=== PATIENT | male | born 1950 | race Hispanic/Latino ===

== ENCOUNTER 2022-03-27 06:25 | Observation (INO) | payer OTHER, MEDICARE ==
[2022-03-24 09:37] LABS: BASOPHILS % (AUTO) 0.6 % (0.0-5.0); HEMATOCRIT 39.8 % (42-54); MEAN CORPUSCULAR HGB CONC 33.2 g/dL (32.0-36.0); MEAN CORPUSCULAR VOLUME 93.4 fL (79-99); MONOCYTES % (AUTO) 6.7 % (3.0-13.0); NEUTROPHILS % (AUTO) 63.5 % (40.0-77.0); PLATELET COUNT (AUTO) 170 K/uL (130-400); RED BLOOD CELL COUNT(AUTO) 4.26 MIL/uL (4.50-6.20); RED CELL DISTRIBUTION WIDTH 12.7 % (11.0-15.5); WHITE BLOOD COUNT (AUTO) 5.4 K/uL (4.8-10.8)
[2022-03-24 09:50] LABS: CREATININE 1.3 mg/dL (0.5-1.5); POTASSIUM 4.4 mmol/L (3.5-5.1)
[2022-03-24 09:53] LABS: INR 1.03 (0.85-1.15); PROTHROMBIN TIME 11.2 SEC (9.6-11.6)
[2022-03-24 12:09] VITALS: BP 140/75
[2022-03-24 12:53] LABS: APPEARANCE,URINE Clear (CLEAR); BILIRUBIN,URINE Negative (NEGATIVE); COLOR,URINE Yellow (YELLOW); GLUCOSE, URINE (UA) Negative (NEGATIVE); KETONES,URINE Negative (NEGATIVE); LEUKOCYTE ESTERASE ,URINE Negative (NEGATIVE); NITRATE,URINE Negative (NEGATIVE); OCCULT BLOOD,URINE Negative (NEGATIVE); PROTEIN,URINE Trace mg/dL (NEGATIVE); UROBILINOGEN,URINE 0.2 mg/dL (0.2-1.0)
[2022-03-24 13:18] LABS: BACTERIA,URINE Rare /HPF (None Seen); RBC,URINE 0-1 /HPF (0-1); SPERM,URINE Few /HPF (None Seen); SQUAMOUS EPITHELIAL CELL,UR Rare /HPF (0-2); WBC,URINE 0-1 /HPF (0-1)
[~2022-03-27] VITALS: Ht 165.1 cm; Wt 79.3 kg
[2022-03-27] VITALS (26 sets, daily range): BP systolic 92–155; BP diastolic 64–91
[2022-03-27] MEDS: CEFAZOLIN SODIUM 2 GM VIAL IV SCH ×2 (05:00→09:24)
[~2022-03-27 06:25] MED LIST: AEC81 PO; ATOR40TA69 PO; DONE5TAB33 PO; GABA100C PO; LOSA100T58 PO; VITAMIN D3 PO
[2022-03-27] MEDS ORDERED: LACTATED RINGERS 1000ML 1,000 ML IV ONE (07:29)
[2022-03-27] MEDS ORDERED: CEFAZOLIN SODIUM 1 GM VIAL ONE (07:29)
[2022-03-27] MEDS ORDERED: KETOROLAC 15MG/ML VIAL (15MG/ML) ONE (08:42)
[2022-03-27] MEDS ORDERED: CELECOXIB 200 MG CAP ONE (08:42)
[2022-03-27] MEDS ORDERED: ACETAMINOPHEN 500 MG TABLET ONE (08:42)
[2022-03-27] MEDS ORDERED: GLYCOPYRROLATE 1 MG/5 ML SYRINGE ONE (09:06)
[2022-03-27] MEDS ORDERED: SUCCINYLCHOLINE 200MG/10ML SYR ONE (09:06)
[2022-03-27] MEDS ORDERED: PROPOFOL 10 MG/ML 20ML VIAL IV ONE (09:06)
[2022-03-27] MEDS ORDERED: LIDOCAINE PF 100MG/5ML (2%) SYRINGE 5ML ONE (09:06)
[2022-03-27] MEDS ORDERED: SUCCINYLCHOLINE CHLORIDE 20 MG/ML 10 ML VIAL ONE (09:06)
[2022-03-27] MEDS ORDERED: NEOSTIGMINE 5MG/5ML SYR IV ONE (09:07)
[2022-03-27] MEDS ORDERED: ROCURONIUM 10MG/1ML SYR 10 MG/ML ML ONE (09:07)
[2022-03-27] MEDS ORDERED: MIDAZOLAM HCL 1 MG/ML 2ML VIAL ONE (09:07)
[2022-03-27] MEDS ORDERED: FENTANYL CITRATE PF 50 MCG/1 ML 2ML VIAL ONE ×2 (09:12→11:54)
[2022-03-27] MEDS: CEFAZOLIN SODIUM 1 GM VIAL ONE ×2 (09:49→09:50)
[2022-03-27] MEDS ORDERED: TRANEXAMIC ACID 1000MG/10ML ONE (09:52)
[2022-03-27] MEDS ORDERED: LIDOCAINE HCL-MPF 1% 2ML VIAL IV PRN (11:30)
[2022-03-27] MEDS ORDERED: POTASSIUM CHLORIDE 20MEQ/100ML 100 ML IV PRN (11:30)
[2022-03-27] MEDS ORDERED: KETOROLAC 15MG/ML VIAL (15MG/ML) IV PRN (11:30)
[2022-03-27] MEDS ORDERED: CALCIUM CARB 500MG PO PRN (11:30)
[2022-03-27] MEDS ORDERED: FERROUS FUMARATE 324 MG TABLET PO PRN (11:30)
[2022-03-27] MEDS ORDERED: KCL 20 MEQ ERTAB PO PRN (11:30)
[2022-03-27] MEDS ORDERED: POTASSIUM CHLORIDE 10% ELIXIR 20 MEQ/15 ML UDCUP PO PRN (11:30)
[2022-03-27] MEDS ORDERED: OXYCODONE HCL 5 MG TAB PO PRN (11:30)
[2022-03-27] MEDS: ACETAMINOPHEN 500 MG TABLET PO SCH ×2 (11:30→20:29)
[2022-03-27] MEDS ORDERED: DiphenhydrAMINE HCL 50 MG/ML VIAL IVP PRN (11:30)
[2022-03-27] MEDS ORDERED: ONDANSETRON 4MG INJ IVP PRN (11:30)
[2022-03-27] MEDS ORDERED: MEPERIDINE-PF 25 MG/ML SYG ONE ×2 (12:12→13:01)
[2022-03-27] MEDS: CEFAZOLIN SODIUM 1 GM VIAL IVP SCH (18:21)
[2022-03-27] MEDS: DONEPEZIL HCL 5 MG TAB PO SCH (20:28)
[2022-03-27] MEDS: CELECOXIB 200 MG CAP PO SCH (20:28)
[2022-03-27] MEDS: FAMOTIDINE 20MG TAB PO SCH (20:28)
[2022-03-27] MEDS: ATORVASTATIN 40 MG TABLET PO SCH (20:28)
[2022-03-27] MEDS: GABAPENTIN 100 MG CAPSULE PO SCH (20:28)
[2022-03-27] MEDS: 0.9%NACL 1000ML 1,000 ML IV SCH (20:31)
[2022-03-27] MEDS ORDERED: PREGABALIN 25 MG CAP PO SCH (21:00)
[2022-03-27] MEDS: OXYCODONE HCL 5 MG TAB PO PRN (22:06)
[2022-03-28] VITALS (7 sets, daily range): BP systolic 105–135; BP diastolic 52–68
[2022-03-28] MEDS: CEFAZOLIN SODIUM 1 GM VIAL IVP SCH (00:02)
[2022-03-28] MEDS: 0.9%NACL 1000ML 1,000 ML IV SCH ×2 (00:03→04:20)
[2022-03-28] MEDS ORDERED: TAMSULOSIN HCL 0.4 MG CAP.ER.24H ONE (02:36)
[2022-03-28] MEDS ORDERED: TAMSULOSIN HCL 0.4 MG CAP.ER.24H PO SCH (03:00)
[2022-03-28] MEDS: ACETAMINOPHEN 500 MG TABLET PO SCH ×3 (03:30→20:32)
[2022-03-28] MEDS: CEFAZOLIN SODIUM 2 GM VIAL IV SCH (03:31)
[2022-03-28 05:04] LABS: HEMATOCRIT 30.9 % (42-54); MEAN CORPUSCULAR HGB CONC 33.7 g/dL (32.0-36.0); MEAN CORPUSCULAR VOLUME 92.2 fL (79-99); RED BLOOD CELL COUNT(AUTO) 3.35 MIL/uL (4.50-6.20); RED CELL DISTRIBUTION WIDTH 12.7 % (11.0-15.5); WHITE BLOOD COUNT (AUTO) 5.8 K/uL (4.8-10.8)
[2022-03-28 05:25] LABS: CREATININE 1.3 mg/dL (0.5-1.5); POTASSIUM 4.2 mmol/L (3.5-5.1)
[2022-03-28] MEDS: OXYCODONE HCL 5 MG TAB PO PRN ×2 (05:25→14:25)
[2022-03-28] MEDS: POLYETHYLENE GLYCOL 3350 17 GM POWD.PACK PO SCH (08:27)
[2022-03-28] MEDS: RIVAROXABAN 20 MG TABLET PO SCH (08:27)
[2022-03-28] MEDS: CELECOXIB 200 MG CAP PO SCH ×2 (08:27→20:31)
[2022-03-28] MEDS: GABAPENTIN 100 MG CAPSULE PO SCH ×2 (08:28→20:30)
[2022-03-28] MEDS: FAMOTIDINE 20MG TAB PO SCH ×2 (08:28→20:30)
[2022-03-28] MEDS: LOSARTAN 100 MG TABLET PO SCH (08:28)
[2022-03-28] MEDS: TAMSULOSIN HCL 0.4 MG CAP.ER.24H PO SCH (08:28)
[2022-03-28] MEDS: TRAMADOL HCL 50 MG TABLET PO PRN ×2 (10:28→23:26)
[2022-03-28] MEDS: DONEPEZIL HCL 5 MG TAB PO SCH (20:30)
[2022-03-28] MEDS: ATORVASTATIN 40 MG TABLET PO SCH (20:30)
[2022-03-29] MEDS: ACETAMINOPHEN 500 MG TABLET PO SCH ×2 (03:30→10:50)
[2022-03-29] MEDS: CEFAZOLIN SODIUM 2 GM VIAL IV SCH (04:17)
[2022-03-29 04:40] VITALS: BP 100/50
[2022-03-29 08:59] VITALS: BP 119/62
[2022-03-29] MEDS: RIVAROXABAN 20 MG TABLET PO SCH (09:06)
[2022-03-29] MEDS: POLYETHYLENE GLYCOL 3350 17 GM POWD.PACK PO SCH (09:06)
[2022-03-29] MEDS: TAMSULOSIN HCL 0.4 MG CAP.ER.24H PO SCH (09:06)
[2022-03-29] MEDS: LOSARTAN 100 MG TABLET PO SCH (09:07)
[2022-03-29] MEDS: CELECOXIB 200 MG CAP PO SCH (09:07)
[2022-03-29] MEDS: GABAPENTIN 100 MG CAPSULE PO SCH (09:07)
[2022-03-29] MEDS: FAMOTIDINE 20MG TAB PO SCH (09:07)
[2022-03-29] MEDS: TRAMADOL HCL 50 MG TABLET PO PRN (09:09)
[2022-03-29] MEDS ORDERED: BISACODYL 10 MG SUPP.RECT RC SCH (10:00)
[2022-03-29 11:40] VITALS: BP 109/58
[2022-03-29] MEDS ORDERED: MAGNESIUM CITRATE 296 ML SOLUTION PO SCH (12:30)
[2022-03-29 15:58] VITALS: BP 106/67
[2022-03-29] MEDS ORDERED: HYDR-4060 PO (16:02)
[2022-03-29] MEDS ORDERED: RIVA20TA PO (16:02)
[2022-03-30] MEDS ORDERED: BISACODYL 10 MG SUPP.RECT RC PRN (11:30)
== END 2022-03-29 19:09 | disposition home health service (06) ==
LOC: DAH 06:25 → DAHIP 06:26 → DAH 06:26 → 4AH 13:49
PROVIDERS: ADMIT Orthopaedic Surgery; ATTEND Orthopaedic Surgery
DX: M17.11 Unilateral primary osteoarthritis, right knee (principal); Z20.822 Contact with and (suspected) exposure to COVID-19; D62 Acute posthemorrhagic anemia; I10 Essential (primary) hypertension; R33.9 Retention of urine, unspecified; K21.9 Gastro-esophageal reflux disease without esophagitis; Z79.899 Other long term (current) drug therapy; Z86.16 Personal history of COVID-19; Z87.891 Personal history of nicotine dependence
CPT/HCPCS: 27447; 36415 ×2; 80048 ×2; 81001; 85025; 85027; 85610; 87088; 87635; 87641; 88305; 88311; 93005; 96374; 96375; 96376; 97039 ×4; 97116 ×4; 97161; 97530 ×5; A4215; A4221; A4222; A4223; A4649 ×5; A4663; A5120; A9272; C1776; C9803; G0378 ×52; J0330 ×2; J0690 ×5; J1885 ×2; J2001; J2175 ×2; J2250; J2704; J2710; J3010 ×2; J3490 ×2; J7120 ×2

== ENCOUNTER 2022-05-22 09:35 | Observation (INO) | payer OTHER, MEDICARE ==
[2022-05-19 10:56] LABS: HEMATOCRIT 34.5 % (42-54); MEAN CORPUSCULAR HEMOGLOBIN 29.1 pg (27.0-33.0); MEAN CORPUSCULAR HGB CONC 31.6 g/dL (32.0-36.0); PLATELET COUNT (AUTO) 178 K/uL (130-400); RED BLOOD CELL COUNT(AUTO) 3.75 MIL/uL (4.50-6.20); RED CELL DISTRIBUTION WIDTH 13.7 % (11.0-15.5); WHITE BLOOD COUNT (AUTO) 4.9 K/uL (4.8-10.8)
[2022-05-19 10:57] LABS: APPEARANCE,URINE CLEAR (CLEAR); BILIRUBIN,URINE NEGATIVE (NEGATIVE); COLOR,URINE YELLOW (YELLOW); GLUCOSE, URINE (UA) NEGATIVE (NEGATIVE); KETONES,URINE NEGATIVE (NEGATIVE); LEUKOCYTE ESTERASE ,URINE NEGATIVE (NEGATIVE); NITRATE,URINE NEGATIVE (NEGATIVE); OCCULT BLOOD,URINE TRACE-INTACT (NEGATIVE); PROTEIN,URINE NEGATIVE (NEGATIVE); UROBILINOGEN,URINE 0.2 mg/dL (0.2-1.0)
[2022-05-19 11:06] LABS: CREATININE 1.2 mg/dL (0.5-1.5); POTASSIUM 4.8 mmol/L (3.5-5.1)
[2022-05-19 11:07] LABS: INR 0.99 (0.85-1.15); PROTHROMBIN TIME 10.8 SEC (9.6-11.6)
[2022-05-19 11:15] LABS: BACTERIA,URINE Rare /HPF (None Seen); RBC,URINE 0-1 /HPF (0-1); SQUAMOUS EPITHELIAL CELL,UR Rare /HPF (0-2); WBC,URINE None Seen /HPF (0-1)
[2022-05-19 11:32] LABS: EOSINOPHILS % (MANUAL) 3 % (1-6); LYMPHOCYTES % (MANUAL) 26 % (22-44); MAN.DIFF COMMENT-IMPRESSION MANUAL DIFFERENTIAL; MONOCYTES % (MANUAL) 5 % (2-9); PLATELET MORPHOLOGY COMMENT ADEQUATE; SEGMENTED NEUTROPHILS % 66 % (40-70)
[2022-05-19 16:53] VITALS: BP 131/65
[~2022-05-22] VITALS: Ht 170.2 cm; Wt 75.1 kg
[2022-05-22] VITALS (26 sets, daily range): BP systolic 120–149; BP diastolic 65–84
[~2022-05-22 09:35] MED LIST changes: +CEFAZOLIN SODIUM 1 GM VIAL IRRIG ONE; +CEFAZOLIN SODIUM 2 GM VIAL IV ONE; +CEFAZOLIN SODIUM 2 GM VIAL IV SCH; +HYDR-4060 PO; -LOSA100T58 PO; +LOSA50TA64 PO; +TAMS-1 PO
[2022-05-22] MEDS ORDERED: LACTATED RINGERS 1000ML 1,000 ML IV ONE (10:20)
[2022-05-22] MEDS ORDERED: CEFAZOLIN SODIUM 1 GM VIAL ONE ×2 (10:20→15:12)
[2022-05-22] MEDS ORDERED: LIDOCAINE PF 100MG/5ML (2%) SYRINGE 5ML ONE (14:16)
[2022-05-22] MEDS ORDERED: PROPOFOL 10 MG/ML 20ML VIAL IV ONE (14:16)
[2022-05-22] MEDS ORDERED: MIDAZOLAM HCL 1 MG/ML 2ML VIAL ONE (14:20)
[2022-05-22] MEDS ORDERED: FENTANYL CITRATE PF 50 MCG/1 ML 2ML VIAL ONE ×2 (14:20→17:20)
[2022-05-22] MEDS ORDERED: ROPIVACAINE 0.5% 5MG/ML 30ML IJ ONE (14:33)
[2022-05-22] MEDS ORDERED: KETAMINE 50MG/ML SYRINGE 50 MG/ML DISP.SYRIN IV ONE (14:34)
[2022-05-22] MEDS ORDERED: ROCURONIUM 10MG/1ML SYR 10 MG/ML ML ONE ×2 (14:35→15:22)
[2022-05-22] MEDS ORDERED: DEXAMETHASONE SOD PHOSPHATE 10MG/ML 1ML VIAL ONE (14:43)
[2022-05-22] MEDS ORDERED: ONDANSETRON 4MG INJ ONE (14:56)
[2022-05-22] MEDS ORDERED: CEFAZOLIN SODIUM 2 GM VIAL IV ONE (15:05)
[2022-05-22] MEDS ORDERED: CEFAZOLIN SODIUM 1 GM VIAL IRRIG ONE (15:23)
[2022-05-22] MEDS ORDERED: FERROUS FUMARATE 324 MG TABLET PO PRN (17:00)
[2022-05-22] MEDS ORDERED: POTASSIUM CHLORIDE 10% ELIXIR 20 MEQ/15 ML UDCUP PO PRN (17:00)
[2022-05-22] MEDS ORDERED: POTASSIUM CHLORIDE 20MEQ/100ML 100 ML IV PRN (17:00)
[2022-05-22] MEDS ORDERED: LIDOCAINE HCL-MPF 1% 2ML VIAL IV PRN (17:00)
[2022-05-22] MEDS ORDERED: ONDANSETRON 4MG INJ IVP PRN (17:00)
[2022-05-22] MEDS ORDERED: TRAMADOL HCL 50 MG TABLET PO PRN (17:00)
[2022-05-22] MEDS: 0.9%NACL 1000ML 1,000 ML IV SCH (17:00)
[2022-05-22] MEDS: ACETAMINOPHEN 500 MG TABLET PO SCH (17:00)
[2022-05-22] MEDS ORDERED: DiphenhydrAMINE HCL 50 MG/ML VIAL IVP PRN (17:00)
[2022-05-22] MEDS ORDERED: KCL 20 MEQ ERTAB PO PRN (17:00)
[2022-05-22] MEDS ORDERED: GLYCOPYRROLATE 1 MG/5 ML SYRINGE ONE (17:14)
[2022-05-22] MEDS ORDERED: NEOSTIGMINE 5MG/5ML SYR IV ONE (17:14)
[2022-05-22] MEDS ORDERED: MEPERIDINE-PF 25 MG/ML SYG ONE (17:43)
[2022-05-22] MEDS: OXYCODONE HCL 5 MG TAB PO PRN (19:57)
[2022-05-22] MEDS ORDERED: TAMSULOSIN HCL 0.4 MG CAP.ER.24H PO SCH (21:00)
[2022-05-22] MEDS: FAMOTIDINE 20MG TAB PO SCH (22:00)
[2022-05-22] MEDS: APIXABAN 5 MG TABLET PO SCH (22:01)
[2022-05-22] MEDS: CELECOXIB 200 MG CAP PO SCH (22:01)
[2022-05-22] MEDS: GABAPENTIN 100 MG CAPSULE PO SCH (22:01)
[2022-05-22] MEDS: ATORVASTATIN 40 MG TABLET PO SCH (22:01)
[2022-05-22] MEDS: CEFAZOLIN SODIUM 1 GM VIAL IVP SCH (22:02)
[2022-05-22] MEDS: DONEPEZIL HCL 5 MG TAB PO SCH (22:02)
[2022-05-22] MEDS: KETOROLAC 15MG/ML VIAL (15MG/ML) IV PRN (22:06)
[2022-05-23 00:45] VITALS: BP 115/56
[2022-05-23] MEDS: ACETAMINOPHEN 500 MG TABLET PO SCH ×3 (00:45→17:02)
[2022-05-23] MEDS: 0.9%NACL 1000ML 1,000 ML IV SCH ×2 (03:00→13:00)
[2022-05-23] MEDS ORDERED: 0.9% NACL 500ML IV.SOLN 500 ML IV ONE (03:16)
[2022-05-23] MEDS: OXYCODONE HCL 5 MG TAB PO PRN ×4 (04:00→17:26)
[2022-05-23 04:49] LABS: HEMATOCRIT 26.5 % (42-54); MEAN CORPUSCULAR HGB CONC 32.5 g/dL (32.0-36.0); MEAN CORPUSCULAR VOLUME 89.2 fL (79-99); RED BLOOD CELL COUNT(AUTO) 2.97 MIL/uL (4.50-6.20); RED CELL DISTRIBUTION WIDTH 13.4 % (11.0-15.5); WHITE BLOOD COUNT (AUTO) 5.9 K/uL (4.8-10.8)
[2022-05-23 05:09] LABS: CREATININE 1.3 mg/dL (0.5-1.5); POTASSIUM 4.2 mmol/L (3.5-5.1)
[2022-05-23] MEDS: CEFAZOLIN SODIUM 1 GM VIAL IVP SCH (06:58)
[2022-05-23 08:00] VITALS: BP 107/51
[2022-05-23] MEDS: **HM**[Vitamin D3] 1,000 UNITS PO SCH (09:00)
[2022-05-23] MEDS ORDERED: TAMSULOSIN HCL 0.4 MG CAP.ER.24H PO SCH (09:00)
[2022-05-23] MEDS: POLYETHYLENE GLYCOL 3350 17 GM POWD.PACK PO SCH (09:55)
[2022-05-23] MEDS: CELECOXIB 200 MG CAP PO SCH ×2 (09:56→20:17)
[2022-05-23] MEDS: APIXABAN 5 MG TABLET PO SCH ×2 (09:56→20:17)
[2022-05-23] MEDS: GABAPENTIN 100 MG CAPSULE PO SCH ×2 (09:57→20:17)
[2022-05-23] MEDS: FAMOTIDINE 20MG TAB PO SCH ×2 (09:57→20:17)
[2022-05-23] MEDS: LOSARTAN 50 MG TABLET PO SCH (09:57)
[2022-05-23] MEDS: TAMSULOSIN HCL 0.4 MG CAP.ER.24H PO SCH ×2 (10:12→20:58)
[2022-05-23 12:00] VITALS: BP 106/59
[2022-05-23 16:00] VITALS: BP 93/48
[2022-05-23] MEDS: ATORVASTATIN 40 MG TABLET PO SCH (20:17)
[2022-05-23] MEDS: CALCIUM CARB 500MG PO PRN (20:17)
[2022-05-23] MEDS: DONEPEZIL HCL 5 MG TAB PO SCH (20:17)
[2022-05-23 20:36] VITALS: BP 125/68
[2022-05-24] VITALS (7 sets, daily range): BP systolic 92–163; BP diastolic 40–143
[2022-05-24] MEDS: OXYCODONE HCL 5 MG TAB PO PRN ×3 (02:57→13:06)
[2022-05-24] MEDS: ACETAMINOPHEN 500 MG TABLET PO SCH ×3 (02:57→17:19)
[2022-05-24] MEDS: KETOROLAC 15MG/ML VIAL (15MG/ML) IV PRN (04:23)
[2022-05-24] MEDS: FAMOTIDINE 20MG TAB PO SCH (08:51)
[2022-05-24] MEDS: POLYETHYLENE GLYCOL 3350 17 GM POWD.PACK PO SCH (08:51)
[2022-05-24] MEDS: APIXABAN 5 MG TABLET PO SCH (08:51)
[2022-05-24] MEDS: CELECOXIB 200 MG CAP PO SCH (08:51)
[2022-05-24] MEDS: TAMSULOSIN HCL 0.4 MG CAP.ER.24H PO SCH (08:51)
[2022-05-24] MEDS: GABAPENTIN 100 MG CAPSULE PO SCH (08:51)
[2022-05-24] MEDS: LOSARTAN 50 MG TABLET PO SCH (08:51)
[2022-05-24] MEDS: **HM**[Vitamin D3] 1,000 UNITS PO SCH (09:00)
[2022-05-24] MEDS ORDERED: HYDR-4060 PO (11:08)
[2022-05-24] MEDS ORDERED: APIX2.5T PO (11:08)
[2022-05-24] MEDS ORDERED: FERR324T10 PO (11:08)
[2022-05-24] MEDS: CALCIUM CARB 500MG PO PRN (13:06)
[2022-05-24] MEDS ORDERED: MAGNESIUM CITRATE 296 ML SOLUTION ONE (14:25)
[2022-05-24] MEDS ORDERED: MAGNESIUM CITRATE 296 ML SOLUTION PO SCH (14:30)
[2022-05-25] MEDS ORDERED: BISACODYL 10 MG SUPP.RECT RC PRN (17:00)
== END 2022-05-24 21:32 | disposition home health service (06) ==
LOC: DAH 09:35 → DAHIP 09:36 → DAH 16:41 → 4AH 18:51
PROVIDERS: ADMIT Orthopaedic Surgery; ATTEND Orthopaedic Surgery
DX: M17.12 Unilateral primary osteoarthritis, left knee (principal); Z20.822 Contact with and (suspected) exposure to COVID-19; G89.29 Other chronic pain; M25.562 Pain in left knee; M17.11 Unilateral primary osteoarthritis, right knee; I10 Essential (primary) hypertension; R00.1 Bradycardia, unspecified; D62 Acute posthemorrhagic anemia; Z86.718 Personal history of other venous thrombosis and embolism; Z87.891 Personal history of nicotine dependence; Z96.651 Presence of right artificial knee joint; Z79.899 Other long term (current) drug therapy; Z98.890 Other specified postprocedural states
CPT/HCPCS: 27447; 36415 ×2; 80048 ×2; 81001; 85025; 85027; 85610; 87088; 87635; 87641; 96374; 96375; 96376 ×2; 97039 ×4; 97116 ×4; 97161; 97530 ×3; A4215; A4221; A4222; A4223; A4600; A4649 ×4; A4663; A5120; A9272; C1776; C9803; G0378 ×51; J0690 ×6; J1100; J1885 ×2; J2001; J2175; J2250; J2405; J2704; J2710; J2795; J3010 ×2; J3490 ×2; J7040; J7120 ×2

== ENCOUNTER → 2025-07-23 | Outpatient (CLI) | payer OTHER, MEDICARE ==
[~2025-07-23] MED LIST changes: -AEC81 PO; +APIX2.5T PO; -CEFAZOLIN SODIUM 1 GM VIAL IRRIG ONE; -CEFAZOLIN SODIUM 2 GM VIAL IV ONE; -CEFAZOLIN SODIUM 2 GM VIAL IV SCH; +FERR324T10 PO; -TAMS-1 PO; +TAMS-55 PO
--- NOTE | 2025-07-24 00:15 | HMCIMG ---
EXAM: CT Cervical Spine Without IV contrast. CLINICAL HISTORY: Radiculopathy, cervical region TECHNIQUE: Axial computed tomography images of the cervical spine without intravenous contrast. Sagittal and coronal reformatted images were generated. COMPARISON: None provided. FINDINGS: ALIGNMENT: Bony alignment is anatomic. DEGENERATIVE CHANGES: Spondylotic changes in the form of multilevel osteophytes, uncovertebral joint hypertrophy, vacuum phenomena at C4-C5 IV disc, pneumatocyst in C3, C4 and C5 vertebrae. Flowing anterior osteophytes extending from C6-T2 vertebrae, possibility of diffuse idiopathic skeletal hyperostosis (DISH). No significant canal stenosis or neural foraminal narrowing is evident. SOFT TISSUES: The prevertebral soft tissues are within normal limits. BONES: No acute fracture or aggressive appearing osseous lesion. IMPRESSION: 1. No acute cervical spine osseous injury. 2. Multilevel cervical spondylosis with flowing anterior osteophytes C6-T2, possibly representing diffuse idiopathic skeletal hyperostosis (DISH). /[place]
== END | disposition home or self-care (01) ==
LOC: RAH 13:10
PROVIDERS: ATTEND Internal Medicine
DX: M47.22 Other spondylosis with radiculopathy, cervical region (principal); M25.78 Osteophyte, vertebrae
CPT/HCPCS: 72125